=== PATIENT | female | born 1990 | race Asian ===

== ENCOUNTER → 2018-02-11 | Emergency (ER) | payer OTHER ==
[~2018-02-11] MED LIST: NS 0.9% 1000 ML* 1,000 ML IV ONE
--- OUTSIDE RECORDS SUMMARY | 2018-02-11 04:00 | XMS REPORT | Continuity of Care Document ---
:1990 External Reference #:[id number] Author Name Annabella Guido MD Address [address] [place] [address] Care Team Providers Name Role Phone Annabella Guido MD Care Team Information E Commerce Merchant Unavailable Payers Type Date Identification Numbers Payment Provider Subscriber Policy Number: [id number] [facility] Admin Sonali Vallejo PayID: [id number] [address] [place] [address] Advance Directives Description No Information Available Problems Date Description Provider Status Onset: 12/29/2017 [facility] Josef Navarro CNM Active Family History Date Family Member(s) Problem(s) Comments Father A&W Mother A&W Children None Siblings 1 First Brother A&W Paternal Grandfather due to Stroke () Paternal Grandmother A&W Maternal Grandfather Colon Cancer Dx'd age 69 Maternal Grandmother Hypertension Social History Type Date Description Comments Sex Unknown Education Highest Level Completed, Master's Degree Marital Status Lives With Spouse Pets 1 cat 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 Hazards Not exposed to any environmental hazards Environmental Hazards Low Lead Risk Tobacco Use Start: Unknown Never Smoked Cigarettes ETOH Use Denies alcohol use Recreational Drug Use Denies Drug Use Seat Belt/Car Seat Always uses seat belt Allergies, Adverse Reactions, Alerts Description No Known Drug Allergies Medications Description No Information Medications Administered in Office Medication Date Status Form Strength Qnty SIG Indications Ordering Provider PT SCRN Tbco Administered Injection Hay Id as Non User 018 MD Annabella Immunizations Description No Information Available Vital Signs Date Vital Result Comment 12/29/2017 7:55am BP Systolic 102 mmHg BP Diastolic 64 mmHg Height 58.25 inches 4'10.25" Weight 97.00 lb BMI (Body Mass Index) 20.1 kg/m2 Last Menstrual Period [id number] 1 Parity 0 Results Test Date Facility Test Result H/L Range Note Hemoglobin 01/23/2018 [facility] Hemoglobin A2 2.4 % 2.0-3.3 [place] [address] [phone] Hemoglobin F 1.7 % 0.0-0.9 1 Hemoglobin A 95.9 % 95.8-98.0 Variant Hemoglobin 0.0 % 2 Hemoglobin Electro Interp See Comment 3 Laboratory test 01/15/2018 [facility] Cytology SEE RESULT 4 [place] [address] BELOW [phone] GC/Chlamydia 01/15/2018 [facility] Chlamydia Negative [place] [address] trachomatis Rna [phone] Neisseria gonorrhoeae (GC) Rna Negative Negative Urine Culture And 01/15/2018 [facility] Urine Culture SEE RESULT 5 [place] [address] BELOW [phone] PNL No 12/29/2017 [facility] Rubella Immune Immune 6 [place] [address] Screen [phone] Hemoglobin A1c 4.9 % 4.0-5.6 7 Hepatitis B Surface Ag Nonreactive Nonreactive 8 Syphillis Igg W/Reflex RPR Nonreactive Nonreactive 9 CBC With No 12/29/2017 [facility] White Blood 5.7 10^3/uL 3.5 -10.8 [place] [address] Count [phone] Red Blood Count 4.15 10^6/uL 4.00-5.40 Hemoglobin 13.2 g/dL 12.0-16.0 Hematocrit 39 % 35-47 Mean Corpuscular Volume 94 fL 80-97 Mean Corpuscular Hemoglobin 32 pg High 27-31 Mean Corpuscular HGB Conc 34 g/dL 31-36 Red Cell Distribution Width 13 % 10.5-15 Platelet Count 228 10^3/uL 150-450 Mean Platelet Volume 8.9 um3 7.4-10.4 Type And Screen 12/29/2017 [facility] Patient [place] [address] [phone] Antibody Screen NEGATIVE HIV 1/2 AB 12/29/2017 [facility] HIV 1 2 Nonreactive Nonreactive 10 [place] [address] Antibody [phone] Lead 12/29/2017 [facility] Lead,Venous, < 1.0 g/dL 0.0-4.9 11 [place] [address] B [phone] Venous/Capillary Venous Submitting Laboratory Phone [phone] Toxoplasma Igg & 12/29/2017 [facility] Toxoplasma IgG [place] [address] Antibody [phone] Toxoplasma IgG Antibody Index <3 IU/mL 13 Toxoplasma IgM Antibody Negative Negative 14 1 ADDITIONAL INFORMATION This test has been modified from the watch assembly instructor's instructions. Its performance characteristics were determined by [facility] in a manner consistent with CLIA requirements. This test has not been cleared or approved by the U.S. Food and Drug Administration. 2 REFERENCE VALUE No abnormal variants ADDITIONAL INFORMATION This test has been modified from the watch assembly instructor's instructions. Its performance characteristics were determined by [facility] in a manner consistent with CLIA requirements. This test has not been cleared or approved by the U.S. Food and Drug Administration. 3 There is a slight increase in Hb F of uncertain significance. Hb A2 is normal and no hemoglobin variants were detected by protein analysis. Isolated mild increases in Hb F are commonly due to harmless genetic alterations regulating gamma gene expression (i.e. the Xmnl polymorphism, etc.); however, some rare clinically significant hemoglobin disorders can cause variable elevations in Hb F. If there are clinical and/or familial features suggestive of a hemoglobin disorder, such as unexplained longstanding microcytosis or anemia in the absence of iron deficiency, and further evaluation is desired, please call the Metabolic Hematology Laboratory ( ). Test Performed by: [facility] - [address] [address] 4 SEE RESULT BELOW Name: ALTHEA DOBSON : [address]: Josef GREGORY Acct: [id number] Unit: [id number] AGE: 27 Location: [facility] Re01/15/18 SEX: F Status: REG REF SPEC: [id number] CORINNE: 01/15/18-[address]: Josef Navarro [facility] REQ: [id number] RECD: 01/15/18 STATUS: SOUT _ ORDERED: TP IMAGE ANALYS COMMENTS: [id number] Negative for Intraepithelial lesion or Malignancy A. Ectocervical/Endocervical Specimen Adequacy: Satisfactory of evaluation Transformation zone component identified Patient Information: HPV: Thin Layer Pap Test w/reflex to high risk HPV RNA testing when ASCUS Actual Specimen Date: 01/15/18 Last Menstrual Date: 10/21/17 Spec Date if unknown: unknown ?: Y Post Menopausal?: N Hysterectomy?: N Previous Abnormal Pap Smears?:N Signed by and Reported on: KATHY Choi (ASCP) 0902 This Pap test was evaluated with the assistance of the Stereotaxis Test Imaging System. Due to cytologic findings at the architectural project manager microscope, comprehensive manual rescreening by a Resilient Tile Installer may be required. The Pap Smear is a screening test designed to aid in the detection of premalignant and malignant conditions of the uterine cervix. It is not a diagnostic procedure and should not be used as the sole means of detecting cervical cancer. Both false- positive and false- negative reports do occur. Depending on your risk status, a Pap smear should be obtained and evaluated every 1-3 years. END OF REPORT DEPARTMENT OF PATHOLOGY, [address] [place] [address] Castro Dhillon M.D. Director [facility] # [id number] 5 SEE RESULT BELOW Name: ALTHEA DOBSON : [address]: Josef Navarro [facility] Acct: [id number] Unit: [id number] AGE: 27 Location: [facility] Re01/15/18 SEX: F Status: REG REF SPEC: [id number] CORINNE: 01/15/18-[address]: Josef Navarro [facility] REQ: [id number] RECD: 01/15/18 STATUS: COMP _ SOURCE: URINE SPDESC: ORDERED: Urine Culture Urine Source: Random Procedure Result Reported Site Urine Culture Final 01/16/18- 1609 ML No Growth (<1,000 CFU/mL) * ML - Main Lab . END OF REPORT DEPARTMENT OF PATHOLOGY, [address] [place] [address] Castro Dhillon M.D. Director [facility] # [id number] 6 [id number] Therapeutic target for the treatment of diabetes mellitus patients is <7% HBA1C, and in selective patients <6.0%. Please refer to [place] Diabetes Association diabetic care guidelines for further information. 8 [id number] 9 Warning: A positive result is not useful for establishing a diagnosis of syphilis. In most situations, such a result may reflect a prior treated infection; a negative result can exclude a diagnosis of syphilis except for incubating or early primary disease. 10 It is recognized that currently available assays for the detection of antibodies to HIV-1 and/or HIV-2 may not detect all infected individuals. HIV antibodies may be undetectable in some stages of the infection and in some clinical conditions. The performance of this assay has not been established for populations of infants or children. Assayed by Chemiluminescence Microparticle Immunoassay on the Siemens Advia Centaur CP. Values obtained with different methods or kits cannot be used interchangeably.The diagnostic specificity of the ADVIA Centaur 1/O/2 Enhanced assay in the low risk population was 99.90% (6052/6058) with a 95% confidence interval of 99.78 to 99.96%. 11 ADDITIONAL INFORMATION Testing performed by Inductively Coupled Plasma-Mass Spectrometry (ICP-MS). This test was developed and its performance characteristics determined by [facility] in a manner consistent with CLIA requirements. This test has not been cleared or approved by the U.S. Food and Drug Administration. 12 Test Performed by: [place] [address] 13 REFERENCE VALUE <=9 IU/mL (Negative) 10-11 IU/mL (Equivocal) >=12 IU/mL (Positive) Test Performed by: [place] [address] 14 No IgM antibodies to T. gondii detected. Results may be negative in patients with recent infection or who are significantly immunosuppressed. Procedures Date Code Description Status 02/09/2018 85395 OB Ultrasound First Trimester Completed 01/15/2018 05446 OB Ultrasound First Trimester Completed 12/29/2017 25936 OB Ultrasound First Trimester Completed Encounters Description No Information Available Plan of Treatment Future Appointment(s):02/12/2018 2:30 pm - Brooklyn Martinez CNM at [facility]02/09/2018 - Annabella Guido MDO02.1 Missed abortionComments:Discussed surgery with the pt including what to expect for the procedure, recovery and risks including infection and bleeding. Discussed impact on future and when they can start trying again. They decline furthe genetic testing. Will plan to schedule Wed with Dr. Rey (he is aware).
--- OUTSIDE RECORDS SUMMARY | 2018-02-11 04:00 | XMS REPORT | Continuity of Care Document ---
:1990 External Reference #:[id number] Author Name Amanda Rico CNM Address [address] [place] [address] Care Team Providers Name Role Phone Annabella Guido MD Care Team Information Intervention Nurse Unavailable Payers Type Date Identification Numbers Payment Provider Subscriber Policy Number: [id number] 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 Not exposed to any environmental hazards [...] Ordering Provider PT SCRN Tbco Administered Injection Hay, Id as Non User 018 MD Annabella Immunizations Description No Information Available Vital Signs Date Vital Result Comment 12/29/2017 7:55am BP Systolic 102 mmHg BP Diastolic 64 mmHg Height 58.25 inches 4'10.25" Weight 97.00 lb BMI (Body Mass Index) 20.1 kg/m2 Last Menstrual Period [id number] 1 Parity 0 Results Test Date Facility Test Result H/L Range Note Hemoglobin 01/23/2018 [facility] Hemoglobin A2 2.4 % 2.0-3.3 [place] [address] [phone] Hemoglobin F 1.7 % 0.0-0.9 1 Hemoglobin A 95.9 % 95.8-98.0 Variant Hemoglobin 0.0 % 2 Hemoglobin Electro Interp See Comment 3 Laboratory test 01/15/2018 [facility] Cytology SEE RESULT 4 [place] [address] BELOW [phone] GC/Chlamydia 01/15/2018 [facility] Chlamydia Negative [place] [address] trachomatis Rna [phone] Neisseria gonorrhoeae (GC) Rna Negative Negative Urine Culture And 01/15/2018 [facility] Urine Culture SEE RESULT 5 [place] [address] BELOW [phone] PNL No 12/29/2017 [facility] Rubella Immune Immune 6 [place] [address] Screen [phone] Hemoglobin A1c 4.9 % 4.0-5.6 7 Hepatitis B Surface Ag Nonreactive Nonreactive 8 Syphillis Igg W/Reflex RPR Nonreactive Nonreactive 9 CBC With No 12/29/2017 [facility] White Blood 5.7 10^3/uL 3.5 -10.8 [place] [address] Count [phone] Red Blood Count 4.15 10^6/uL 4.00-5.40 Hemoglobin 13.2 g/dL 12.0-16.0 Hematocrit 39 % 35-47 Mean Corpuscular Volume 94 fL 80-97 Mean Corpuscular Hemoglobin 32 pg High 27-31 Mean Corpuscular HGB Conc 34 g/dL 31-36 Red Cell Distribution Width 13 % 10.5-15 Platelet Count 228 10^3/uL 150-450 Mean Platelet Volume 8.9 um3 7.4-10.4 Type And Screen 12/29/2017 [facility] Patient [place] [address] [phone] Antibody Screen NEGATIVE HIV 1/2 AB 12/29/2017 [facility] HIV 1 2 Nonreactive Nonreactive 10 [place] [address] Antibody [phone] Lead 12/29/2017 [facility] Lead,Venous, < 1.0 g/dL 0.0-4.9 11 [place] [address] B [phone] Venous/Capillary Venous Submitting Laboratory Phone [phone] Toxoplasma Igg & 12/29/2017 [facility] Toxoplasma IgG Negative [place] [address] Antibody [phone] Toxoplasma IgG Antibody Index <3 IU/mL 13 Toxoplasma IgM Antibody Negative Negative 14 1 ADDITIONAL INFORMATION This test has been modified from the pss delivery professional's instructions. Its performance characteristics were determined by [facility] in a manner consistent with CLIA requirements. This test has not been cleared or approved by the U.S. Food and Drug Administration. 2 REFERENCE VALUE No abnormal variants ADDITIONAL INFORMATION This test has been modified from the pss delivery professional's instructions. Its performance characteristics were determined by [facility] in a manner consistent with CLIA requirements. [...] Hematology Laboratory ( ). Test Performed by: [facility] - [address] [address] 4 SEE RESULT BELOW Name: ALTHEA DOBSON : [address]: Josef GREGORY Acct: [id number] Unit: [id number] AGE: 27 Location: [facility] Re01/15/18 SEX: F Status: REG REF SPEC: [id number] CORINNE: 01/15/18-[address]: Josef Navarro [facility] REQ: [id number] RECD: 01/15/18 STATUS: SOUT _ ORDERED: TP IMAGE ANALYS COMMENTS: [id number] Negative for Intraepithelial lesion or Malignancy A. [...] was evaluated with the assistance of the Melon Test Imaging System. Due to cytologic findings at the electrical discharge machine operator microscope, comprehensive manual rescreening by a Last Greaser may be required. The Pap Smear is [...] years. END OF REPORT DEPARTMENT OF PATHOLOGY, [address] [place] [address] Castro Dhillon M.D. Director [facility] # [id number] 5 SEE RESULT BELOW Name: ALTHEA DOBSON : [address]: Josef Navarro [facility] Acct: [id number] Unit: [id number] AGE: 27 Location: [facility] Re01/15/18 SEX: F Status: REG REF SPEC: [id number] CORINNE: 01/15/18-[address]: Josef Navarro [facility] REQ: [id number] RECD: 01/15/18 STATUS: COMP _ SOURCE: URINE SPDESC: ORDERED: Urine Culture Urine Source: Random Procedure Result Reported Site Urine Culture Final 01/16/18- 1609 ML No Growth (<1,000 CFU/mL) * ML - Main Lab . END OF REPORT DEPARTMENT OF PATHOLOGY, [address] [place] [address] Castro Dhillon M.D. Director [facility] # [id number] 6 [id number] Therapeutic target for the treatment of diabetes mellitus patients is <7% HBA1C, and in selective patients <6.0%. Please refer to [place] [employer] diabetic care guidelines for further information. 8 [id number] Warning: A positive result is not [...] developed and its performance characteristics determined by [facility] in a manner consistent with CLIA requirements. This test has not been cleared or approved by the U.S. Food and Drug Administration. 12 Test Performed by: [facility] [place] [address] 13 REFERENCE VALUE <=9 IU/mL (Negative) 10-11 IU/mL (Equivocal) >=12 IU/mL (Positive) Test Performed by: [facility] [place] [address] 14 No IgM antibodies to T. gondii detected. Results may be negative in patients with recent infection or who are significantly immunosuppressed. Procedures Date Code Description Status 02/09/2018 37080 OB Ultrasound First Trimester Completed 01/15/2018 00323 OB Ultrasound First Trimester Completed 12/29/2017 38206 OB Ultrasound First Trimester Completed Encounters Type Date Location Provider Dx Diagnosis Office Visit 02/09/2018 2:00p [facility] Office Amanda Rico CNM O02.1 Missed Plan of Treatment Future Appointment(s):02/12/2018 2:30 pm - Brooklyn Martinez CNM at [facility]02/09/2018 - Amanda Rico, COLTMO02.1 Missed abortionComments:Sono today shows no evidence cardiac activity, GA 10+2 weeks. Reviewed with patient and discussed option of expectant management vs medication vs surgical management of miscarriage. Questions answered.Patients strongly desire surgical management. Opening with [facility] and will be seen for consult for D&C to be scheduled with [facility] for 02/11. Questions answered and expected course reviewed. Bleeding precautions discussed.
--- NOTE | 2018-02-11 04:15 | ED ---
Abdominal Pain/Female - HPI Summary HPI Summary: A 28 y/o female accompanied by a friend presents to the ED c/o abdominal pain reaching 2/10 in severity. Currently, the patient reports that per pain is okay and does not need treatment. As per triage, "Patient reports miscarriage, confirmed by ultrasound on Friday. D&C scheduled for 0900 today. Patient reports uncontrolled pain and heavy bleeding". According to the patient, she has been experiencing severe pain for the last couple hours and have been bleeding quite a bit. She stated she believes she is having a complication with . The last episode of pain and bleeding was very bad. She has a D&C this AM with Dr. Rey. - History of Current Complaint Chief Complaint: EDOBProblems Stated Complaint: ABD PAIN Hx Obtained From: Patient Onset/Duration: Sudden Onset, Still Present Timing: Constant Severity Initially: Mild Severity Currently: Mild Pain Intensity: 2 Pain Scale Used: 0-10 Numeric Location: Suprapubic Radiates: No Aggravating Factor(s): Nothing Alleviating Factor(s): Nothing Associated Signs and Symptoms: Positive: Vaginal Bleeding Allergies/Adverse Reactions: Allergies Allergy/AdvReac Type Severity Reaction Status Date / Time alcohol Allergy SKIN Verified 02/10/18 13:16 [facility]DENS PMH/Surg Hx/FS Hx/Imm Hx Endocrine/Hematology History: Denies: Hx Diabetes Cardiovascular History: Denies: Hx Hypertension Respiratory History: Denies: Hx Asthma - Surgical History Surgery Procedure, Year, and Place: No prior surgeries noted by patient. Infectious Disease History: No Infectious Disease History: Denies: Traveled Outside the [place] in Last 30 Days - Family History Known Family History: Negative: Hypertension, Diabetes - Social History Alcohol Use: None Substance Use Type: Reports: None Smoking Status (MU): Never Smoked Tobacco Review of Systems Negative: Fever Positive: Abdominal Pain Positive: discharge - Bleeding, pain All Other Systems Reviewed And Are Negative: Yes Physical Exam - Summary Physical Exam Summary: Appearance: Well-appearing, Well-nourished, lying in bed comfortable Skin: Warm, dry, no obvious rash Eyes: sclera anicteric, no conjunctival pallor ENT: mucous membranes moist Neck: deferred Respiratory: No signs of respiratory distress Cardiovascular: Appears well perfused, pulses are nml Abdomen: No abdominal or pelvic tenderness. Pelvic exam revealed the cervix is slightly open with minimal bleeding. By manual exam, uterus is boggy but size is consistent with dates. Musculoskeletal: Moving all 4 extremities without obvious discomfort Neurological: Awake and alert, mentation is normal, speech is fluent and appropriate Psychiatric: affect is normal, does not appear anxious or depressed Triage Information Reviewed: Yes Vital Signs On Initial Exam: Initial Vitals Temp Pulse Resp BP Pulse Ox 99 F 87 16 113/78 97 02/11/18 03:49 02/11/18 03:49 02/11/18 03:49 02/11/18 03:49 02/11/18 03:49 Vital Signs Reviewed: Yes Diagnostics - Vital Signs Vital Signs Temp Pulse Resp BP Pulse Ox 02/11/18 03:49 99 F 87 16 113/78 97 - Laboratory Result Diagrams: 02/11/18 04:15 02/11/18 04:15 Lab Statement: Any lab studies that have been ordered have been reviewed, and results considered in the medical decision making process. Abdominal Pain Fem Course/Dx - Course Course Of Treatment: A 28 y/o female accompanied by a friend presents to the ED c/o abdominal pain reaching 2/10 in severity. Currently, the patient reports that per pain is okay and does not need treatment. According to the patient, she has been experiencing severe pain for the last couple hours and have been bleeding quite a bit. She stated she believes she is having a complication with . The last episode of pain and bleeding was very bad. She has a D&C this AM with Dr. Rey. Physical exam revealed no abdominal or pelvic tenderness. Pelvic exam revealed the cervix is slightly open with minimal bleeding. By manual exam, uterus is boggy but size is consistent with dates. In the ED course, the patient recieved IV fluids. Patient care was discussed with Dr. Zafar who recommends discharging patient since case seems is a clear completed . Dr. Zafar also recommends ER MD to reach to Dr. Rey at 0700 when on-call. Patient will be discharged with a diagnosis of miscarriage. Patient is agreeable with this plan. - Diagnoses Provider Diagnoses: Miscarriage - Provider Notifications Discussed Care Of Patient With: Robin Zafar Time Discussed With Above Provider: 04:38 Instructed by Provider To: Other - RECOMMENDS DISCHARGE DUE TO CLEAR INDICATION OF . ER MD SHOULD REACH DR. REY AT 0700 WHEN PURCHASE PRICE ANALYST. Discharge - Sign-Out/Discharge Documenting (check all that apply): Patient Departure - DISCHARGE - Discharge Plan Condition: Improved Disposition: HOME Patient Education Materials: Miscarriage (ED) Referrals: Serge Rey MD [Medical Doctor] - - Billing Disposition and Condition Condition: IMPROVED Disposition: Home - Attestation Statements Document Initiated by Nate: Yes Documenting Scribe: Ed Kimble Provider For Whom Nate is Documenting (Include Credential): Anthony Michaud MD Scribe Attestation: Ed Vasquez, scribed for Anthony Michaud MD on 02/11/18 at 2020. Scribe Documentation Reviewed: Yes Provider Attestation: The documentation as recorded by the Ed ramires accurately reflects the service I personally performed and the decisions made by me, Anthony Michaud MD Status of Scribe Document: Viewed
[2018-02-11 04:25] LABS: ABS Basophils 0.1 10^3/ul (0-0.2); ABS Eosinophils 0 10^3/ul (0-0.6); ABS Lymphocytes 1.9 10^3/ul (1.0-4.8); ABS Monocytes 0.4 10^3/ul (0-0.8); ABS Neutrophils 6.4 10^3/ul (1.5-7.7); ABS Nucleated RBC 0 10^3/ul; Eosinophil % 0.2 %; Hematocrit 41 % (35-47); Hemoglobin 13.9 g/dl (12.0-16.0); Lymphocyte % 21.5 %; Mean Corpuscular HGB Conc 34 g/dl (31-36); Mean Corpuscular Hemoglobin 32 pg (27-31); Mean Corpuscular Volume 95 fL (80-97); Mean Platelet Volume 8.1 fL (7.4-10.4); Nucleated Red Blood Cells % 0; Platelet Count 197 10^3/ul (150-450); Red Cell Distribution Width 14 % (10.5-15); White Blood Count 8.8 10^3/ul (3.5-10.8)
[2018-02-11 04:41] LABS: EGFR Non-African American 133.6 (>60)
[2018-02-11 05:27] VITALS: BP 0/0
== END | disposition home or self-care (01) ==
LOC: ED 03:48
DX: O03.9 Complete or unspecified spontaneous abortion without complication (principal)
CPT/HCPCS: 36415; 80053; 84702; 85025; 86850; 86900; 86901; 88305; 99282

== ENCOUNTER 2019-01-11 13:48 | Inpatient (IN) | payer OTHER, MEDICAID ==
[2019-01-11] MEDS ORDERED: Lactated Ringers 1000 ML Bag* 1,000 ML IV ONE (15:34)
[2019-01-11] MEDS ORDERED: Buffered Lidocaine 1% SYRIN* 1 ML/SYRINGE INTRADERM ONE (15:34)
--- NOTE | 2019-01-11 15:49 | HP ---
General Information - Reason for Visit 28yo, , IUP@39 wk, here for ripening and IOL for A1 GDM - General Information Maternal Age: 28 Grav: 2 Para: 0 SAB: 1 IEA: 0 Estimated Due Date: 01/18/19 Gestational Age in Weeks/Days: 39+0 Maternal Blood Type and Rh: O Positive - Results this Serology/RPR Result: Non-Reactive Rubella Result: Immune HBsAg Result: Negative HIV Result: Negative GBS Culture Result: Negative Past Medical History Past Medical History Comment: None Pertinent Past Surgical History: None Family History Comment: PGF: d/t stroke MGM: HTN MGF: colon CA - Antepartal Records Antepartal Records: Reviewed, Complicated by: - A1 GDM, echogenic foci and choroid plexus Review of Systems Constitutional: Comfortable CV Complaint: No Respiratory: Shortness of Breath: No Gastrointestinal: No Nausea/Vomiting Genitourinary: No Dysuria, No Bleeding, No Leaking Fluid Musculoskeletal: No Complaint, No Epigastric Pain Neurological: No Headache, No Visual Changes Movement: Normal Exam Allergies/Adverse Reactions: Allergies alcohol Allergy (Verified 02/10/18 13:16) SKIN REDDENS temp 99.8, HR 100, RR 20, BP 122/84, O2 96 - Measurements Height: 4 ft 10 in Weight: 116 lb Weight in lbs: [id number] Body Mass Index (BMI): 24.2 Pre- Weight: 95 lb Weight Gained This : 21 lbs and 0 ozs - Exam Breast: Breast Exam Deferred CVA: No CVA Tenderness Extremities: No Edema Heart: Normal Rhythm/Heart Sounds HEENT: No Significant Findings Lungs: Clear Bilaterally Rectal: Rectal Exam Deferred Thyroid: No Thyromegaly - Abdominal Exam Abdomen Exam: Non-Tender Targeted Exam Findings Estimated Weight: 6lbs 9oz@36 weeks Cervical Exam: 1cm Effacement: 50% Station: -1 Presenting Part: Vertex Membrane Status: Intact Bleeding/Discharge: None EFM Findings - External Monitor Findings Baseline Heart Rate: 130 External Monitor Findings: Accelerations Present, No Pattern of Variable or Late Decelerations, Variability Moderate External Monitor Findings Comment: No evidence of metabolic acidemia Contractions: Irregular - q7-10 minutes Assessment/Plan - Assessment IUP@39 here for a IOL for A1 GDM O+, GBS negative complicated by GDM and an echogenic focus with normal NIPT No significant medical or surgical hx No evidence of metabolic acidemia Occasional contractions - Obstetrical Risk Factors Obstetrical Risk Factors: Gestational Diabetes - Plan Plan: Admit - Anticipate Vaginal Delivery - PARQ discussion about Cook catheter and Pitocin. Pt in agreement with plan.
[2019-01-11] MEDS ORDERED: Misoprostol TAB* 100 MCG PO SCH (16:00)
[2019-01-11 16:56] LABS: ABS Lymphocytes 1.6 10^3/ul (1.0-4.8); ABS Monocytes 0.5 10^3/ul (0-0.8); ABS Neutrophils 4.4 10^3/ul (1.5-7.7); Eosinophil % 0.3 %; Hematocrit 38 % (35-47); Hemoglobin 13.3 g/dL (12.0-16.0); Lymphocyte % 24.2 %; Mean Corpuscular HGB Conc 35 g/dL (31-36); Mean Corpuscular Hemoglobin 36 pg (27-31); Mean Corpuscular Volume 102 fL (80-97); Mean Platelet Volume 9.4 fL (7.4-10.4); Nucleated Red Blood Cells % 0.1; Platelet Count 144 10^3/uL (150-450); Red Cell Distribution Width 14 % (10-15); White Blood Count 6.5 10^3/uL (3.5-10.8)
[2019-01-11] MEDS ORDERED: Oxytocin in LR* 20 UNITS/1,000 ML BAG IVPB SCH (17:00)
[2019-01-11 17:24] LABS: Urine Benzodiazepine Screen None Detected (None Detect); Urine Opiates Screen None Detected (None Detect)
--- NOTE | 2019-01-11 17:30 | PN ---
Progress Note - Progress Note Date of Service: 01/11/19 Note: S: Pt is comfortable. Not feeling contractions. O: BP 122/84, HR 101 VE: 1/50/vtx, -1, bloody show. Duffy = 4 FHR 130, +accels, no decels, moderate variability Contractions: 7-10 mins, palpate mild-moderate A: Not in active labor Unfavorable cervix No evidence of acidemia Irregular contractions P: Cook catheter placed. Pt tolerated well RN to start low-dose Pitocin, titrate as tolerated Anticipate progression to
--- NOTE | 2019-01-11 21:12 | PN ---
Progress Note - Progress Note Date of Service: 01/11/19 Note: S: Pt is feeling contractions. Able to talk, breathe, smile through them. O: VE: deferred FHR: moderate to marked variability Contractions: 3-4 mins, palpate mild-moderate Pitcin@4mU A: Not in active labor No evidence of acidemia Regular contractions Cook catheter in place P: Continue to titrate Pitocin as tolerated Anticipate progression to
[2019-01-11] MEDS ORDERED: Promethazine INJ(RESTRICTED)* 25 MG/ML 1 ML VIAL IV PRN (22:56)
[2019-01-11] MEDS ORDERED: Nalbuphine* 10 MG/ML 1 ML VIAL IV PRN (22:56)
--- NOTE | 2019-01-11 22:56 | PN ---
Progress Note - Progress Note Date of Service: 01/11/19 Note: S: Pt is feeling contractions. Able to talk, breathe, smile through them. Re questing pain meds. O: temp 99.3, 105/64, HR 76 VE: 3/60/-1, Cook catheter removed FHR: moderate to marked variability Contractions: 3-4 mins, palpate mild-moderate Pitcin@8mU A: Early labor No evidence of acidemia Regular contractions P: Continue to titrate Pitocin as tolerated IV pain medication now Anticipate progression to
[2019-01-11] MEDS: Lactated Ringers 1000 ML Bag* 1,000 ML IV SCH (23:23)
--- NOTE | 2019-01-12 03:54 | PN ---
Progress Note - Progress Note Date of Service: 01/12/19 Note: S: Pt is feeling contractions. States ctx are becoming more uncomfortable. Able to sleep for 3 hours or so. Requesting pains meds/epidural. O: temp 99.3, 105/64, HR 76 VE: 3/60/-1 FHR: 130, moderate variability, +accels, no decels Contractions: 3 mins, palpate strong, some coupling Pitcin@8mU A: IUP@39 weeks in early labor No evidence of acidemia Regular contractions No cervical change since last exam P: Continue to titrate Pitocin as tolerated Given no cervical change, discussed epidural now vs. ambulation, position changes. Pt opts to hold-off on epidural for now. Anticipate progression to
[2019-01-12] MEDS: Lactated Ringers 1000 ML Bag* 1,000 ML IV SCH ×2 (04:22→13:14)
[2019-01-12] MEDS ORDERED: Misoprostol TAB* 100 MCG ONE (07:38)
--- NOTE | 2019-01-12 07:44 | PN ---
Progress Note - Progress Note Date of Service: 01/12/19 Note: S: Pt able to sleep after Pitocin discontinued at 0500. Not feeling contractions now. O: VE: deferred FHR: 125, moderate variability, +accels, no decels Contractions: 5-6mins A: IUP@39 weeks not in active labor No evidence of acidemia Pitcoin discontinued at 0500 for NRFHT, return to category I tracing P: PARQ discussion about Misoprostol. Pt and in agreement with plan. Pt to shower first. Anticipate progression to active labor. Report given to Iwona Rico CNM.
[2019-01-12] MEDS ORDERED: Misoprostol TAB* 100 MCG PO SCH (08:00)
--- NOTE | 2019-01-12 10:16 | PN ---
Progress Note - Progress Note Date of Service: 01/12/19 Note: S: Feeling well, feels mild cramping O: VE deferred 50mcg misoprostal SL FHT 145, +accels, mod variability, variable decels VSS A: IUP @ 39+1 weeks gestation for induction of labor GDM Intact membranes no evidence acidemia P: Will continue to monitor per protocol and plan VE with follow up @ 4 hours or sooner with changes. Discussion of restarting pitocin vs possible continued prostaglandin. Patient verbalized understanding.
--- NOTE | 2019-01-12 12:39 | PN ---
Progress Note - Progress Note Date of Service: 01/12/19 Note: S: Patient got a short nap. States contractions seem a little stronger. O: VE 4cm/60%/-2 FHT 145, +accels, mod paradise, single decel to 120 while patient lying on back for exam UCs q 2-4 min VSS A: IUP @ 39+1 weeks gestation for induction GDM IBOW No evidence acidmia P: PARQ discussion of restarting pitocin for labor augmentation, patients in agreement. Will initiate low-dose pit per protocol. Encourage ambulation, upright positions, position changes to move baby into pelvis. Anticipate SVB.
[2019-01-12] MEDS ORDERED: OBEPIDURAL* 250 ML EPIDURAL ONE (13:21)
--- NOTE | 2019-01-12 13:52 | PN ---
Progress Note - Progress Note Date of Service: 01/12/19 Note: S: Patient desires epidural, reports that contractions are now much stronger on pitocin. O: VE deferred Pit @ 4 FHT 140, +accels, no decels, mod paradise A: IUP @ 39+1 for induction P: Reviewed epidural procedure with patient, anesthesia paged to unit.
[2019-01-12] MEDS ORDERED: Sodium Citrate/Citric Acid* 15 ML UDC PO PRN (14:16)
[2019-01-12] MEDS ORDERED: Famotidine TAB* 20 MG PO PRN (14:16)
[2019-01-12] MEDS ORDERED: EPHEDrine (Pressors)* 50 MG/ML VIAL IV PUSH PRN ×2 (14:16)
[2019-01-12] MEDS ORDERED: Phenylephrine 40 MCG/ML SYRINGE IV PUSH PRN ×2 (14:16)
[2019-01-12] MEDS ORDERED: Lactated Ringers 1000 ML Bag* 1,000 ML IV ONE (14:16)
[2019-01-12] MEDS ORDERED: OBEPIDURAL* 250 ML EPIDURAL SCH (15:00)
[2019-01-12] MEDS ORDERED: Lactated Ringers 1000 ML Bag* 1,000 ML IV SCH (15:00)
--- NOTE | 2019-01-12 19:54 | PN ---
Progress Note - Progress Note Date of Service: 01/12/19 Note: S: Patient comfortable, not feeling contractions but does note some more low pelvic pressure. O: VE 8cm/90/-2 FHT 150, +accels, no decels, mod variability after a period of about 35 min with minimal variability, several small late decels. Pitocin now off, turned off after above FHT tracing T 100.9, BP 115/76 UCs q 2-4 min A: IUP @ 39+1 weeks gestation for induction Possible distress with pitocin contractions, improved. P: Continue side to side position changes with peanut ball or exaggerated runner. Consider amniotomy after confirming stable FHT.
--- NOTE | 2019-01-12 21:29 | PN ---
Progress Note - Progress Note Date of Service: 01/12/19 Note: S:Pt comfortable with epidural. Dozed some. Mild nausea, may want med to manage. Feeling more pressure in pelvis, has used epidural bolus button several times which seems to help somewhat. O: VE 9cm/90/-2 FHT 145, Cat 1 VSS UC q 3-4 min, some coupling Pit off AROM to clear/bloody fluid A: IUP @ 39+1 weeks gestation for IOL Ruptured No evidence of acidemia P: Continue to encourage position changes, rest. Will order PRN Zofran vs Tums for nausea. Monitor for increased pressure/urge to push. Consider pitocin starting @ 1 if ctx space out. Anticipate SVB.
[2019-01-13] MEDS ORDERED: diPHENhydraMINE IV* 50 MG/ML 1 ml VIAL (BENADRYL) IV PRN ×2 (01:25→06:56)
--- NOTE | 2019-01-13 03:32 | PN ---
Progress Note - Progress Note Date of Service: 01/13/19 Note: S: Patient drowsed after dose of benadryl. O: VE swollen ant lip, 9cm, vtx 0 FHT 150, +accels, no decels, mod paradise UCs q 2-4 min VSS Pit @ 1 A: IUP @ 39+2 weeks gestation for induction GDM P: Ice applied to cervical lip, will attempt runner's position for optimal baby positioning. Reassess after more rest and position changes.
[2019-01-13] MEDS ORDERED: Gentamicin ADULT (*) 250 MG in NS 0.9% 100 ML* 100 ML IVPB SCH (04:15)
[2019-01-13] MEDS ORDERED: Acetaminophen TAB* 325 MG PO PRN (04:25)
[2019-01-13] MEDS ORDERED: Ampicillin ADVAN(*) 2 GM in NS 0.9% 100 ML* 100 ML IVPB SCH (05:00)
[2019-01-13] MEDS ORDERED: Acetaminophen TAB* 325 MG ONE (05:02)
[2019-01-13] MEDS ORDERED: fentaNYL* 50 MCG/ML 2 ML VIAL (100 MCG VIAL) ONE (06:13)
[2019-01-13] MEDS ORDERED: Morphine PF AMP (0.5MG/ML)* 5 MG/10 ML AMP ONE (06:13)
[2019-01-13] MEDS ORDERED: Midazolam* 1 MG/ML 5 ML VIAL (5 MG) ONE (06:13)
[2019-01-13] MEDS ORDERED: KETAMINE HCL* 50 MG/ML 10 ML VIAL ONE (06:13)
[2019-01-13] MEDS ORDERED: ceFOXitin 2 GM IVPREMIX* 2 GM/50 ML BAG IVPB ONE (06:29)
[2019-01-13] MEDS ORDERED: ceFOXitin 2 GM IVPREMIX* 2 GM/50 ML BAG ONE (06:29)
[2019-01-13] MEDS ORDERED: Scopolamine 1.5 mg* PATCH ONE (06:40)
[2019-01-13] MEDS ORDERED: Ondansetron INJ* 2 MG/ML VIAL ONE (06:41)
[2019-01-13] MEDS ORDERED: OXYTOCIN* 10 UNITS/ML 1 ML VIAL ONE (06:41)
[2019-01-13] MEDS ORDERED: Lidocaine 2% PF* 10 ML AMP ONE (06:41)
[2019-01-13] MEDS ORDERED: Ketorolac INJ* 30 MG/ML 1 ML VIAL ONE (06:41)
[2019-01-13] MEDS ORDERED: Lidocaine 2% w/ EPI 1:200,000* 20 ML SDV VIAL ONE (06:41)
[2019-01-13] MEDS ORDERED: Dexamethasone IV* 4 MG/ML 1 ML (4 MG) ONE (06:41)
[2019-01-13] MEDS ORDERED: PROCHLORPERAZINE INJ 5 MG/ML 2 ML VIAL ONE (06:41)
[2019-01-13] MEDS ORDERED: Carboprost Tromethamine* 250 MCG INJ ONE (06:54)
[2019-01-13] MEDS ORDERED: PROCHLORPERAZINE INJ 5 MG/ML 2 ML VIAL IV PRN (06:56)
[2019-01-13] MEDS ORDERED: Nalbuphine* 10 MG/ML 1 ML VIAL IV PRN (06:56)
[2019-01-13] MEDS ORDERED: Scopolamine 1.5 mg* PATCH TRANSDERM PRN (06:56)
[2019-01-13] MEDS ORDERED: Ondansetron INJ* 2 MG/ML VIAL IV PRN (06:56)
[2019-01-13] MEDS ORDERED: DiMENhydriNATE IV* 50 MG/ML VIAL IV PUSH PRN (06:56)
[2019-01-13] MEDS ORDERED: Naloxone* 0.4 MG/ML 1 ML VIAL IV PRN ×2 (06:56→06:59)
[2019-01-13] MEDS ORDERED: oxyCODONE/Acetamin 5/325 MG* TAB PO PRN ×3 (06:56→07:37)
[2019-01-13] MEDS ORDERED: Naloxone* 2 MG in NS 0.9% 250 ML* 250 ML IV PRN (06:56)
[2019-01-13] MEDS ORDERED: fentaNYL* 50 MCG/ML 2 ML VIAL (100 MCG VIAL) IV PRN (06:59)
[2019-01-13] MEDS: Ibuprofen TAB* 400 MG PO SCH ×3 (07:00→18:20)
[2019-01-13] MEDS ORDERED: EPHEDrine (Pressors)* 50 MG/ML VIAL ONE (07:35)
[2019-01-13] MEDS ORDERED: Phenylephrine 40 MCG/ML SYRINGE ONE (07:35)
[2019-01-13] MEDS ORDERED: Dibucaine 1% 28.35 GM TUBE PR PRN (07:37)
[2019-01-13] MEDS ORDERED: Zolpidem TAB* 5 MG PO PRN (07:37)
[2019-01-13] MEDS ORDERED: Glycerin ADULT SUPP PR PRN (07:37)
--- NOTE | 2019-01-13 07:41 | PN ---
Progress Note - Progress Note Date of Service: 01/13/19 Note: Late entry note for 0445: S: Patient still comfortable though notes more low pelvic pressure. O: VE unchanged FHT: baseline 155, single decel into 80/90s, lasting approx 8 min with return to baseline after oxygen, pitocin turned off, position changes. Good variability throughout. VSS UCs q 1-3 min A: IUP @ 39+2 weeks gestation GDM Possible chorio, will treat with abx Questionable status P: Will change positions and closely monitor FHT. Discussed attempting pushing though ant cervical lip remains. Consider MD consult for if Cat II FHT or no progress with pushing attempt.
[2019-01-13] MEDS: Lactated Ringers 1000 ML Bag* 1,000 ML IV SCH (10:38)
[2019-01-13] MEDS: Simethicone TAB* 80 MG TAB.CHEW PO SCH ×4 (12:30→23:02)
[2019-01-13] MEDS: Docusate CAP* 100 MG PO SCH ×3 (13:30→23:02)
[2019-01-14] MEDS: Ibuprofen TAB* 400 MG PO SCH ×4 (00:35→22:05)
[2019-01-14] MEDS: Docusate CAP* 100 MG PO SCH ×3 (07:48→21:25)
[2019-01-14] MEDS: Simethicone TAB* 80 MG TAB.CHEW PO SCH ×4 (07:48→21:25)
[2019-01-14 07:54] LABS: ABS Eosinophils 0.1 10^3/ul (0-0.6); ABS Lymphocytes 1.5 10^3/ul (1.0-4.8); ABS Monocytes 0.8 10^3/ul (0-0.8); ABS Neutrophils 9.8 10^3/ul (1.5-7.7); Eosinophil % 0.5 %; Hematocrit 28 % (35-47); Hemoglobin 9.9 g/dL (12.0-16.0); Lymphocyte % 12.5 %; Mean Corpuscular HGB Conc 35 g/dL (31-36); Mean Corpuscular Hemoglobin 36 pg (27-31); Mean Corpuscular Volume 101 fL (80-97); Platelet Count 103 10^3/uL (150-450); Red Blood Count 2.78 10^6 /uL (3.70-4.87); Red Cell Distribution Width 14 % (10-15); White Blood Count 12.2 10^3/uL (3.5-10.8)
[2019-01-14] MEDS: Ferrous Gluconate TAB* 324 MG TAB PO SCH ×2 (08:39→21:24)
--- NOTE | 2019-01-14 10:00 | OP ---
DATE OF OPERATION: 01/13/19 - ROOM #118 DATE OF : 89 SURGEON: Robin Zafar MD. COOK [employer]LED [employer]: Amanda Rico CNM. ANESTHESIA: Epidural. PRE-OP DIAGNOSIS: Arrest of dilation in labor. POST-OP DIAGNOSIS: Arrest of dilation in labor. OPERATIVE PROCEDURE: Primary low-transverse section. ESTIMATED BLOOD LOSS: 700 cc SPECIMEN SENT TO PATHOLOGY: Cord blood. FLUIDS: She received 2 L of IV crystalloid fluid. URINE OUTPUT: 700 cc of clear urine. FINDINGS: Findings were noted to be of a male with nuchal cord x1 over clear fluid with Apgars of 9 and 9 with a weight of 7 pounds and 3 ounces. The uterus, adnexa, bowel, and bladder were within normal limits and there were no complications. DESCRIPTION OF PROCEDURE: The patient was taken to the operating room where she was identified. She was placed on the operating table where an epidural anesthetic was obtained without difficulty. She was then placed in the supine position with a leftward tilt, prepped and draped in a normal sterile fashion. A Pfannenstiel skin incision was made with a knife and carried through to the underlying layer of fascia. The fascia was nicked in the midline and extended laterally with curved Moya scissors. The fascia was grasped superiorly and inferiorly with Otoniel clamps and dissected sharply from the rectus muscle. The rectus muscle was in the midline bluntly. The peritoneum was identified, grasped with pickups, entered sharply with Metzenbaum scissors and extended superiorly and inferiorly sharply. A bladder blade was inserted into the patient's abdomen. A bladder flap was created using Metzenbaum scissors, over which the bladder blade was then reinserted. A low- transverse incision was made with a knife, extended laterally with bandage scissors. The 's head was then grasped and delivered atraumatically. Nuchal cord x1 was reduced. The rest of the 's body was then delivered. The cord was clamped and cut, and the was handed off to waiting sealing machine operator. Cord blood was obtained. The placenta was removed manually. The uterus was then exteriorized, cleared of all clot and debris using moist laparotomy sponges. The uterine incision was closed using 0 Polysorb suture in a running locked fashion with a second imbricating layer of 0 Polysorb suture with good hemostasis noted. The uterus was then returned to the patient's abdomen. The gutters were then cleared of all clot and debris using moist laparotomy sponges. All the sponges and instruments were removed from the patient's abdomen. The peritoneum was then closed using 3-0 Polysorb suture in a running fashion. The fascia was closed using 0 Polysorb suture in a running fashion, and the skin was closed with 4-0 Monocryl subcuticular stitch. The patient tolerated the procedure well. Sponge, lap, and needle counts were correct x2. She was then transferred to the recovery room area in stable condition. [id number]/[facility] #: [id number] MTDD
[2019-01-15] MEDS: Ferrous Gluconate TAB* 324 MG TAB PO SCH ×2 (08:42→21:22)
[2019-01-15] MEDS: Docusate CAP* 100 MG PO SCH ×3 (08:43→21:22)
[2019-01-15] MEDS: Simethicone TAB* 80 MG TAB.CHEW PO SCH ×3 (08:43→18:17)
[2019-01-15] MEDS: Ibuprofen TAB* 400 MG PO SCH ×2 (08:43→08:51)
[2019-01-15] MEDS: Ibuprofen TAB* 600 MG PO PRN (18:19)
[2019-01-16] MEDS: Ibuprofen TAB* 600 MG PO PRN ×2 (00:26→11:36)
[2019-01-16] MEDS: Simethicone TAB* 80 MG TAB.CHEW PO SCH ×2 (00:26→08:46)
[2019-01-16] MEDS ORDERED: Scopolamine PATCH Remove* 1 NOTE MISC PATCH OFF PRN (06:57)
[2019-01-16 08:05] VITALS: BP 111/64
[2019-01-16] MEDS: Docusate CAP* 100 MG PO SCH (08:45)
[2019-01-16] MEDS: Ferrous Gluconate TAB* 324 MG TAB PO SCH (08:45)
[2019-01-18] MEDS ORDERED: Ibuprofen TAB* 600 MG PO PRN (01:01)
== END 2019-01-16 12:30 | disposition home or self-care (01) | DRG 788 ==
LOC: MCHOBOUT 13:48 → MCHOB 15:28
PROVIDERS: ADMIT Advanced Practice Midwife; ATTEND Obstetrics & Gynecology
PROC: 3E033VJ Introduction of Other Hormone into Peripheral Vein, Percutaneous Approach (ICD-10-PCS; 2019-01-13)
PROC: 10907ZC Drainage of Amniotic Fluid, Therapeutic from Products of Conception, Via Natural or Artificial Opening (ICD-10-PCS; 2019-01-13)
PROC: 10D00Z1 Extraction of Products of Conception, Low, Open Approach (ICD-10-PCS; principal; 2019-01-13 06:26)
DX: O24.420 Gestational diabetes mellitus in childbirth, diet controlled (principal); O99.344 Other mental disorders complicating childbirth; F41.9 Anxiety disorder, unspecified; O76 Abnormality in fetal heart rate and rhythm complicating labor and delivery; O69.81X0 Labor and delivery complicated by cord around neck, without compression, not applicable or unspecified; O62.0 Primary inadequate contractions; O90.81 Anemia of the puerperium; D64.9 Anemia, unspecified; Z3A.39 39 weeks gestation of pregnancy; Z37.0 Single live birth
CPT/HCPCS: 36415; 80307; 85025; 86850; 86900; 86901; A9270-GY; J0694; J0780; J1100; J1200; J1580; J1885; J2001; J2250; J2300; J2405; J2550; J2590; J3010; S0191